=== PATIENT | female | born 1985 | race Caucasian/White ===

== ENCOUNTER → 2019-03-22 14:00 | Outpatient (CLI) | payer BC, SELFPAY ==
[2019-03-22 14:44] LABS: Add Manual Diff / Slide Review NO; Basophils Absolute Auto 0 /uL (0-100); Basophils Percent Auto 0.5 % (0-2); Eosinophils Absolute Auto 200 /uL (0-450); Hematocrit 40.4 % (36-46); Hemoglobin 14.1 g/dL (12.0-16.0); Lymphocytes Absolute Auto 2300 /uL (1100-4500); Lymphocytes Percent Auto 23.4 % (25-40); Mean Corpuscular HGB Conc 34.9 % (30-36); Mean Corpuscular Hemoglobin 32.7 PG (26-34); Mean Corpuscular Volume 93.6 fL (80-100); Monocytes Absolute Auto 400 /uL (0-900); Monocytes Percent Auto 4.5 % (3-14); Neutrophils Absolute Auto 6900 /uL (1500-7000); Neutrophils Percent Auto 69.6 % (50-75); Platelet Count 259 X10^3/uL (150-400); Red Blood Cell Count 4.32 X10^6/uL (4.0-5.2); Red Cell Distribution Width 12.7 % (11.6-14.8); White Blood Cell Count 9.9 X10^3/uL (4.5-11.0)
[2019-03-22 14:49] LABS: Reticulocyte Count, Percent 2.1 % (1.06-2.63)
[2019-03-22 15:00] LABS: HEMOLYSIS < 15 (0-50); Iron 149 ug/dL (37-170)
[2019-03-22 15:04] LABS: Alanine Aminotransferase 14 IU/L (<35); Albumin 4.7 g/dL (3.5-5.0); Albumin Globulin Ratio 1.6 (1.0-2.8); Alkaline Phosphatase 73 U/L (38-126); Aspartate Aminotransferase 30 IU/L (14-36); BUN Creatinine Ratio 16.3 (6-22); Bilirubin Direct 0.2 mg/dL (0.0-0.4); Bilirubin Total 1.8 mg/dL (0.2-1.3); Blood Urea Nitrogen 13 mg/dL (7-17); Calcium 9.4 mg/dL (8.4-10.2); Carbon Dioxide 27 mmol/L (22-32); Chloride 107 mmol/L (98-107); Estimated Glomerular Filt Rate > 60.0 mL/min (>60); Gamma Glutamyl Transpeptidase 17 U/L (12-43); Globulin 2.9 g/dL (1.7-4.1); Glucose 107 mg/dL (70-100); HEMOLYSIS < 15 (0-50); Potassium 4.2 mmol/L (3.4-5.1); Sodium 142 mmol/L (137-145); Total Protein 7.6 g/dL (6.3-8.2)
[2019-03-22 15:07] LABS: Transferrin 256 mg/dL (206-381)
[2019-03-23 14:11] LABS: Percent Iron Saturation 51 % (15-50); Total Iron Binding Capacity 292 ug/dL (265-497)
[2019-03-26 11:29] LABS: Hepatitis A Antibody IgM NONREACTIVE; Hepatitis Acute Panel Interp 0.01; Hepatitis B Core Antibody IgM NONREACTIVE; Hepatitis B Surface Antigen NONREACTIVE
[2019-03-26 14:38] LABS: Hepatitis C Antibody NONREACTIVE
== END ==
PROVIDERS: PCP Student in an Organized Health Care Education/Training Program; Visit Provider Student in an Organized Health Care Education/Training Program
DX: R17 Unspecified jaundice (principal); R79.0 Abnormal level of blood mineral
CPT/HCPCS: 36415; 80053; 80074; 82248; 82977; 83540; 83550; 85025; 85045; 86707; 87522

== ENCOUNTER → 2019-04-02 07:11 | Outpatient (CLI) | payer BC, SELFPAY ==
--- NOTE | 2019-04-02 | DI.US.S_ITS ---
PROCEDURE: US ABDOMEN COMPLETE INDICATIONS: JAUNDICE; ABNORMAL LFTS TECHNIQUE: Real-time scanning was performed of the abdominal and retroperitoneal organs, with image documentation. COMPARISON: None. FINDINGS: Liver: Liver is normal in size and homogeneous in echotexture. Gallbladder: No gallstones identified. Normal gallbladder wall. No pericholecystic fluid. Negative sonographic Gonzalez sign. Biliary ducts: Intrahepatic bile ducts are non-dilated. Extrahepatic bile duct caliber measures 2.9 mm. Normal is 6-7 mm or less in diameter, or 10 mm or less post-cholecystectomy. Pancreas: Visualized portions of the pancreas are sonographically normal. Spleen: Spleen is normal in size and homogeneous in echotexture. Kidneys: Kidneys are normal in size and echotexture. Right kidney measures 10.0 cm long; left kidney measures 10.4 cm long. No hydronephrosis or nephrolithiasis. No solid masses. Aorta: Visualized aorta is normal in caliber at less than 3 cm. Iliacs: Proximal common iliac arteries are normal in caliber at less than 2.5 cm. IVC: Intrahepatic inferior vena cava is patent. Miscellaneous: No free abdominal fluid. IMPRESSION: No source for abnormal LFTs. Dictated by: Kris MIRZA Interpreted: Janell Rodrigues MD on 04/02/2019 at 8:22 Approved by: Janell Rodrigues M.D. on 04/02/2019 at 13:58
== END ==
PROVIDERS: PCP Student in an Organized Health Care Education/Training Program; Visit Provider Student in an Organized Health Care Education/Training Program
DX: R17 Unspecified jaundice (principal); R79.89 Other specified abnormal findings of blood chemistry
CPT/HCPCS: 76700

== ENCOUNTER → 2020-03-27 12:44 | Outpatient (CLI) | payer BC, SELFPAY ==
--- NOTE | 2020-03-27 | DI.US.S_ITS ---
PROCEDURE: US ABDOMEN LIMITED INDICATIONS: Lower abdominal pain, unspecified TECHNIQUE: Real-time focused scanning was performed of the periumbilical region, with image documentation. COMPARISON: None. FINDINGS: There is a 2.5 x 1.4 x 1.4 centimeter hypoechoic mass in the anterior right paraumbilical abdominal wall which corresponds to clinically palpable mass. The lesion has irregular, poorly defined margins. Doppler evaluation of the hypoechoic mass demonstrates internal vascularity. No Marcy umbilical/ventral hernia identified. No defect identified in the ventral abdominal wall. IMPRESSION: 2.5 x 1.4 x 1.4 centimeter hypoechoic mass in the anterior right paraumbilical abdominal wall soft tissues which corresponds to clinically palpable lesion. Mass has imaging characteristics suspicious for neoplastic process. Recommend ultrasound-guided fine-needle aspiration for further characterization. Findings recommendations discussed with ordering physician Dr. Sesay on March 27, 2020 at 4:35 p.m. Dictated by: Linda Feldman MD, PhD on 03/27/2020 at 16:30 Approved by: Linda Feldman MD, PhD on 03/27/2020 at 16:37
== END ==
PROVIDERS: PCP Student in an Organized Health Care Education/Training Program; Referring Provider Student in an Organized Health Care Education/Training Program; Visit Provider Student in an Organized Health Care Education/Training Program
DX: R10.30 Lower abdominal pain, unspecified (principal); R19.07 Generalized intra-abdominal and pelvic swelling, mass and lump
CPT/HCPCS: 76705

== ENCOUNTER → 2020-04-04 12:44 | Outpatient (CLI) | payer BC, SELFPAY ==
--- NOTE | 2020-04-04 | PATH_ITS ---
Note [facility] Accession Number: [id number] TESTS RESULT FLAG UNITS REF RANGE LAB Clinician Provided Cytology Information No. of containers..01 Other (Miscellaneous) No. of containers..00 Previously Prepared Cytology Slide [A] 01 RIGHT ABDOMINAL WALL DIAGNOSIS: [A] 01 RIGHT ABDOMINAL WALL MASS SUSPICIOUS FOR MALIGNANCY; SEE COMMENT. COMMENT: The specimen is moderately cellular and contains cohesive groups of severely atypical epithelioid cells, suspcious for malignancy, with the primary consideration consisting of a non-small cell carcinoma; however, tissue examination with potential immunohistochemical analysis is required for definitive diagnosis. The results of this case are verbally provided by Dr. Bangura to on 04/10/2020 at 3:10 p.m. She reports that the patient presented with a papable abdominal mass, seen on ultrasound as a 2.5 cm periumbilical soft tissue mass. She has no known malignancies. Pathologist ICD10: 01 R19.05 01 MALIGNANCY. RECOMMENDED FNA BIOPSY VERSUS URGENT SURGICAL CONSULT FOR LARGER REMOVAL. 01 Beckie Bangura MD, Pathologist NPI- [id number] 01 Rolando Stafford, Dairy Feed Sales Consultant ([facility]) 01 30 CC, PINK, CLEAR RECIEVED: IN CYTOLYT WITH 5 ALCOHOL FIXED AND 5 QUICK STAINED SLIDES. /[facility] 04/08/2020 0729 Local FLAG LEGEND: L-Low Normal,H-High Normal,LL-Alert Low,HH-Alert High <-Panic Low,>-Panic High,A-Abnormal,AA-Critical Abnormal Performed at: 01 =Z [facility] [address], [place] [address] Raudel De Anda MD, Performed at: 01 [facility] [address] [place] [address] [address], [place], [place] [id number] MD Raudel De Anda MD Phone: [phone]
--- NOTE | 2020-04-04 12:47 | DI.US.S_ITS ---
PROCEDURE: US FINE NEEDLE ASPIRATION INDICATIONS: Intra-abdominal and pelvic swelling, mass and lump TECHNIQUE: The indications, alternatives, benefits, risks, and complications of the procedure were explained to the patient. Written informed consent was obtained and placed in the chart. The area of interest was examined sonographically and a site was chosen for ultrasound guided percutaneous sampling. The skin was prepared and draped in the usual fashion, and anesthetized with 1% lidocaine infiltrated from the skin down to the lesion. Multiple passes were then performed, with contents emptied into an appropriate pathology specimen container. A bandage was applied to the area of access at completion of the study. COMPARISON: None. FINDINGS: Location(s) of lesion(s) sampled: Body wall fat right abdomen, near the midline, near the umbilicus. Palpable abnormality. [place]: 25 gauge hypodermic needles. Number of passes: 6 Medications: 1% lidocaine for local anaesthesia. Complications: None. IMPRESSION: Successful ultrasound-guided mildly lobulated mildly heterogeneous mass measuring approximately 1.5 cm in diameter fine needle aspiration, with cytology results pending. Dictated by: Angel Moralez M.D. on 04/04/2020 at 15:56 Approved by: Angel Moralez M.D. on 04/04/2020 at 15:58
== END ==
PROVIDERS: PCP Student in an Organized Health Care Education/Training Program; Referring Provider Student in an Organized Health Care Education/Training Program; Visit Provider Student in an Organized Health Care Education/Training Program
DX: R19.05 Periumbilic swelling, mass or lump (principal)
CPT/HCPCS: 10005

== ENCOUNTER → 2020-04-15 09:46 | Outpatient (CLI) | payer BC, SELFPAY ==
--- NOTE | 2020-04-15 10:43 | DI.CT.S_ITS ---
PROCEDURE: CT CHEST ABD PEL W CON INDICATIONS: Intra-abdominal and pelvic swelling, mass and lump TECHNIQUE: After the administration of oral and intravenous contrast, 5 mm thick sections acquired from the lung apices to the symphysis. 5 mm coronal and sagittal reformats were performed, with additional 7 mm coronal MIP reformats through the lungs. For radiation dose reduction, the following was used: automated exposure control, adjustment of mA and/or kV according to patient size. COMPARISON: [facility], US, US FINE NEEDLE ASPIRATION, 04/04/2020, 13:20. [facility], US, US ABDOMEN LIMITED, 03/27/2020, 13:29. [facility], US, US ABDOMEN COMPLETE, 04/02/2019, 7:30. FINDINGS: Image quality: Excellent. CHEST: Lungs and pleura: There are several lung nodules. Nodule 1: 2 mm; LAUREN; series 5, image 67. Nodule 2: 3 mm; LAUREN; series 5, image 72. Nodule 3: 2 mm; RLL; series 5, image 241. No acute airspace opacities. No pleural effusions or pneumothorax. Central and peripheral airways appear patent and normal in caliber. Mediastinum: Heart size is normal. No pericardial effusion. No mediastinal or hilar adenopathy by size criteria. Thoracic aorta and central pulmonary arteries are normal in size. Esophagus is normal in caliber. No hiatal hernia. Chest wall: No axillary or supraclavicular adenopathy by size criteria. Thyroid gland is normal. ABDOMEN: Solid organs: Liver is normal in size and enhancement. Gallbladder is normal . Biliary system is non dilated. Pancreas enhances normally. Spleen is normal in size and enhancement. No adrenal nodules. Kidneys demonstrate normal size and enhancement, without hydronephrosis. Peritoneum and bowel: Bowel loops demonstrate normal wall thickness and caliber. No free fluid or air. Nodes and vessels: No retroperitoneal or mesenteric adenopathy by size criteria. Aorta and inferior vena cava are normal in size. Miscellaneous: There is a 1.3 x 1.9 x 1.5 cm heterogeneous mass in the right rectus abdominis muscle. PELVIS: Genitourinary: Bladder wall thickness is normal. Uterus is normal. There is a 1.5 cm thick walled cyst with peripheral enhancement in the left ovary, probably a corpus luteum. Miscellaneous: No inguinal hernias or adenopathy. Bones: No suspicious bony lesions. No vertebral body compression fractures. IMPRESSION: 1. A1.3 x 1.9 x 1.5 cm heterogeneous mass in the right rectus abdominis muscle. Differential diagnosis include benign and malignant neoplasm. 2. A 1.5 cm thick wall cyst in the left ovary with peripheral enhancement, most likely a corpus luteum. Follow-up ultrasound is suggested. 3. Small pulmonary nodules are present. A 3 month follow-up CT is suggested. Dictated by: Wing Pena M.D. on 04/15/2020 at 11:17 Approved by: Wing Pena M.D. on 04/15/2020 at 17:28
== END ==
PROVIDERS: PCP Student in an Organized Health Care Education/Training Program; Referring Provider Student in an Organized Health Care Education/Training Program; Visit Provider Student in an Organized Health Care Education/Training Program
DX: R19.09 Other intra-abdominal and pelvic swelling, mass and lump (principal); R91.8 Other nonspecific abnormal finding of lung field; N83.202 Unspecified ovarian cyst, left side
CPT/HCPCS: 71260; 74177; Q9967

== ENCOUNTER → 2020-04-22 14:26 | Outpatient (CLI) | payer BC, SELFPAY ==
[2020-04-22 09:41] LABS: Add Manual Diff / Slide Review NO; Basophils Absolute Auto 100 /uL (0-100); Basophils Percent Auto 0.7 % (0-2); Eosinophils Absolute Auto 300 /uL (0-450); Eosinophils Percent Auto 4.4 % (2-4); Hematocrit 41.5 % (36-46); Hemoglobin 14.1 g/dL (12.0-16.0); Lymphocytes Absolute Auto 2000 /uL (1100-4500); Lymphocytes Percent Auto 29.9 % (25-40); Mean Corpuscular HGB Conc 34.1 % (30-36); Mean Corpuscular Hemoglobin 31.6 PG (26-34); Mean Corpuscular Volume 92.7 fL (80-100); Monocytes Absolute Auto 500 /uL (0-900); Neutrophils Absolute Auto 3900 /uL (1500-7000); Platelet Count 235 X10^3/uL (150-400); Red Blood Cell Count 4.48 X10^6/uL (4.0-5.2); Red Cell Distribution Width 12.8 % (11.6-14.8); White Blood Cell Count 6.8 X10^3/uL (4.5-11.0)
[2020-04-22 09:45] LABS: INR 1.3 (0.9-1.3); Prothrombin Time 14.4 SECONDS (10.1-12.7)
== END ==
PROVIDERS: PCP Student in an Organized Health Care Education/Training Program; Referring Provider Student in an Organized Health Care Education/Training Program; Visit Provider Student in an Organized Health Care Education/Training Program
DX: R19.00 Intra-abdominal and pelvic swelling, mass and lump, unspecified site (principal)
CPT/HCPCS: 36415; 85025; 85610

== ENCOUNTER 2020-04-25 09:23 | Outpatient (CLI) | payer BC, SELFPAY ==
--- NOTE | 2020-04-25 | DI.US.S_ITS ---
PROCEDURE: US BIOPSY ABD OR RETROPERIT Ultrasound-guided percutaneous biopsy with sedation analgesia for 0 minutes. INDICATIONS: RIGHT PARAUMBILICAL MASS BIOPSY TECHNIQUE: The indications, alternatives, benefits, risks, and complications of the procedure were explained to the patient. Written informed consent was obtained and placed in the chart. Continuous EKG and hemodynamic monitoring was started by trained personnel. Real-time sonography was utilized to choose the site for percutaneous biopsy. The skin was prepped and draped in the usual sterile fashion. 1% lidocaine was infiltrated down to the site of interest. A coaxial needle was then advanced into the site of interest under direct sonographic visualization. A biopsy apparatus was then utilized, and core biopsies were obtained. The needle was then withdrawn; a bandage was applied to the biopsy site. COMPARISON: [facility], US, US FINE NEEDLE ASPIRATION, 04/04/2020, 13:20. [facility], US, US ABDOMEN LIMITED, 03/27/2020, 13:29. [facility], US, US ABDOMEN COMPLETE, 04/02/2019, 7:30. [facility], CT, CT CHEST ABD PEL W CON, 04/15/2020, 10:33. FINDINGS: Biopsy site(s): Right anterior abdominal wall mass Needle: Temno and mission biopsy needle sets. Number of passes: 8 Medications: 1% lidocaine for local anaesthesia. Complications: None. IMPRESSION: Successful ultrasound-guided abnormal wall mass biopsy, with pathology results pending. Dictated by: Wing ePna M.D. on 04/25/2020 at 12:43 Approved by: Wing Pena M.D. on 04/25/2020 at 12:50
--- NOTE | 2020-04-25 | PATH_ITS ---
[facility] Accession Number: [id number] . 01 Material submitted: . abdomen - RIGHT PARAUMBILICAL ABDOMINAL MASS . 01 Clinical history: . IHC STAIN RULE OUT IMMUNOHISTOCHEMICAL ANALYSIS . 01 Diagnosis: Right Paraumbilical Abdominal Mass, Biopsy: Minute fragments of fibroadipose tissue with a rare endometrioid-like gland, see Microscopic Description. Overall the specimen is suboptimal for accurate characterization. V 04/30/2020 1232 Local . 01 Electronically signed: . Bentley Aleman MD, Pathologist NPI- [id number] . 01 Gross description: . Received in formalin, labeled with the patient's name and right para-umbilical abdominal mass, are five pale jean cores of soft tissue, 0.4-0.6 cm length, 0.1 cm diameter, submitted intact and entirely. . SUMMARY OF SECTIONS: A1. Five pieces. (CO:[id number]) /[facility] 04/30/2020 1232 Local . 01 Microscopic: . Microscopic examination reveals predominantly fibrous and adipose tissue with a rare endometrioid-appearing gland and scant associated stroma. There is minimal cytologic atypia, and no diagnostic features for malignancy are seen in this extremely limited specimen submitted for examination. In an attempt to further characterize this rare endometrioid-like gland, a limited panel of immunostains is performed with the following results: . PAX-8: Negative; however, the area of interest is not present; no gland is seen. ER: Rare focal positivity, probably of stromal origin; no gland is seen. CD10: Focal stromal positivity. No definite endometrial-type stroma staining. WT-1: Negative; however, the area of interest is not present for evaluation; no gland is seen. . Overall, although this rare endometrioid-appearing gland may represent endometrioma, given the scant lesional tissue, a definitive diagnosis cannot be rendered. . Excisional biopsy is recommended for accurate characterization of the mass. . Preliminary results were called to Dr. Elda Vazquez on 04/29/2020 at 4:15 p.m, by Dr. Beckie Bangura. . * This test was developed and its performance characteristics determined by [facility]. It has not been cleared or approved by the U.S. Food and Drug Administration. The FDA has determined that such clearance or approval is not necessary. This test is used for clinical purposes. It should not be regarded as investigational or for research. . 01 Pathologist provided ICD-10: R19.00 . 01 CPT . 933971, I05780, K67432 Specimen Comment: [id number] [facility]formed at: [facility] [address] [place] [address], [place], [place] [id number] MD Raudel De Anda MD Phone: [phone]
[2020-04-25 09:52] VITALS: BP 122/80; PULSE 81; RESP 16; TEMP 37.1; O2SAT 100; BMI 21.5
[2020-04-25 12:12] VITALS: BP 119/81; PULSE 65; RESP 16; TEMP 37.3; O2SAT 98
--- NOTE | 2020-04-25 12:13 | SUR.PHASEII ---
Patient arrives from Diagnostic imaging in stable condition. VSS. GCS 15. Bandaid noted to lower abdomen, clean dry and intact. Patient rates pain 2/10, denies SOB, denies nausea.
== END 2020-04-25 12:29 | disposition home or self-care (01) ==
PROVIDERS: PCP Student in an Organized Health Care Education/Training Program; Referring Provider Student in an Organized Health Care Education/Training Program; Visit Provider Student in an Organized Health Care Education/Training Program
DX: R19.00 Intra-abdominal and pelvic swelling, mass and lump, unspecified site (principal)
CPT/HCPCS: 49180; 76942

== ENCOUNTER → 2020-05-13 15:05 | Outpatient (CLI) | payer BC, SELFPAY ==
[2020-05-13 16:11] LABS: COVID19 -Nasal RAPID Negative (Negative)
== END ==
PROVIDERS: PCP Student in an Organized Health Care Education/Training Program; Visit Provider Surgery
DX: Z01.812 Encounter for preprocedural laboratory examination (principal); Z20.822 Contact with and (suspected) exposure to COVID-19
CPT/HCPCS: 87635; C9803

== ENCOUNTER 2020-05-14 12:32 | Day surgery (SDC) | payer BC, SELFPAY ==
[2020-05-08 14:28] VITALS: BMI 21.4
[2020-05-14] VITALS (9 sets, daily range): BP systolic 98–124; BP diastolic 62–82; PULSE 60–88; RESP 12–18; TEMP 36.7–37.3; O2SAT 98–100; BMI 21.4
--- NOTE | 2020-05-14 | PATH_ITS ---
[facility] Accession Number: [id number] . 01 Material submitted: . abdomen - ABDOMINAL WALL MASS . 01 Diagnosis: Abdominal Wall, Excision: Endometriosis; see comment. MRV 05/19/2020 1434 Local . 01 Comment: Sections show endometrial glands in association with stroma with surrounding fibrosis and hemosiderin deposition. The findings are consistent with endometriosis. There is no definite evidence of malignancy identified in sections examined. . This case has been reviewed by Dr. Beckie Bangura. . 01 Electronically signed: . Mejia Yancey MD, Dermatopathologist NPI- [id number] . 01 Gross description: . The specimen is received in formalin, labeled abdominal wall mass and consists of a 4.0 x 3.5 x 2.0 cm previously incised jean-pink fragment of soft tissue with adipose tissue. There is a 2.2 x 2.0 x 2.0 cm firm jean-pink nodule which is inked blue and sectioned to reveal firm jean-white cut surfaces. Blanket Winder Helper sections are submitted in cassettes A1-A3. (EA:[id number]) /[facility] 05/16/2020 1245 Local . 01 Pathologist provided ICD-10: N80.9 . 01 CPT . 157967 Performed at: [address], [place], [place] [id number] MD Raudel De Anda MD Phone: [phone]
--- NOTE | 2020-05-14 13:12 | PM.PREOP ---
Pre-operative Note COVID-19 COVID-19 status: Negative Result date/Date tested (Pos, Neg/Pending): 05/13/20 Interval Note History & Physical reviewed/Exam performed by Physician: Yes Changes to H&P: No
[2020-05-14] MEDS: LACTATED RINGERS 1,000 ML 100 ML IV (13:16)
[2020-05-14] MEDS: CEFAZOLIN 2 GM/100 ML FROZ.PIGGY IV (13:22)
--- NOTE | 2020-05-14 13:41 | SUR.OPER ---
Supine on padded OR bed, head on pillow, arms secured on padded arm boards at <90 degrees abduction, legs uncrossed, safety belt at thigh, tape over blanket over lower legs.
[2020-05-14] MEDS: BUPIVACAINE 0.25% W/ EPI (PF) 10 ML VIAL 20 ML INJ (13:47)
[2020-05-14] MEDS: BUPIVACAINE LIPOSOME 266 MG/20 ML VIAL INJ (14:11)
--- NOTE | 2020-05-14 14:56 | PM.OP.1 ---
Operative Date/Time/Diagnoses Date of procedure: 05/14/20 Time of procedure: 14:56 Pre-op diagnosis: Abdominal wall mass, suspect endometrioma Post-op diagnosis: same Procedure & Clinicians Procedure: Excision of abdominal wall mass, subfascial Reconstruction of abdominal wall Same procedure as scheduled: Yes Indications: Painful abdominal wall mass, endometrioma suspicious for malignancy Surgeon: Pearl Sanchez Anesthesia Type: General Operative Notes Findings: Firm nodular mass imbedded through the fascia and within the right rectus muscle Specimen(s): other (Abdominal wall mass) Estimated Blood Loss (mL): 10 Procedure in detail: The patient was brought to the operating room, placed supine on the operating table, and sequential compression devices were placed on both legs and turned on. Appropriate perioperative antibiotics were given. General anesthesia was induced by the anesthesiologist and the patient was intubated with an LMA. The abdomen was then prepped and draped in sterile fashion, and a surgical time-out was conducted. At this point local anesthetic was injected using 0.25% Marcaine with epi, at the site of the planned incision. An 8cm vertical incision was then made in the skin of the lower abdominal midline overlying the palpable mass. Dissection was then carried down through the dermis and subcutaneous tissue, and dissection was carried around the palpable mass leaving a 5mm margin of subcutaneous fat tissue cirumferentially. I dissected circumferentially around the mass until I reached the fascia of the right rectus muscle. I had to incise the fascia as the mass was invading the fascia and adherent to muscle tissue beneath. I dissected the mass off of the muscle, with a small amount of muscle tissue being resected along with the mass. Once the entire specimen was free, I passed it off of the field. I bivalved it, and could see the entire masslike structure was containted within the specimen and was surrounded by a fat and muscle tissue gross margin. I then changed gloves and instruments and irrigated the wound. I then undermined the subcutaneous fat to increase laxity of the abdominal fascia. There was a 3cm x 4cm defect in the fascia which had to be closed because it was at the midline. The muscle and peritoneum were still basically intact and we did not enter the abdominal cavity. I had to make a relaxing incision over the right anterior rectus sheath in order to close the fascia at midline. A 6cm vertical incision was made in the rectus sheath overlying the right rectus muscle. The anterior fascia was then brought to midline and was closed with running 0 vicryl suture. The wound was then irrigated. Local anesthetic was infiltrated into the wound circumferentially using a total of 40mL of 0.25% Marcaine for the entire procedure. I then injected Exparel 20mL in small aliquots. I then closed the subcutaneous fat bringing it together with 3-0 Vicryl suture, and closed the skin with subcuticular Monocryl 4-0. The skin edges were then sealed with Dermabond. This concluded the procedure. A stack of 4x4's were placed on top of the skin glue, and an abdominal binder was placed snuggly on the patient. The patient was awakened from anesthesia and extubated. [facility]. The patient was then transferred to the postanesthesia care unit in stable condition. She tolerated the procedure well. Needle sponge and instrument counts were correct x2 at the end of the case. Complications: none Post-operative Condition: stable Disposition: PACU
== END 2020-05-14 15:33 | disposition home or self-care (01) ==
PROVIDERS: PCP Student in an Organized Health Care Education/Training Program; Referring Provider Surgery; Visit Provider Surgery
PROC: (CPT 22901; principal; 2020-05-14 13:45)
DX: N80.8 Other endometriosis (principal); E80.4 Gilbert syndrome; E83.119 Hemochromatosis, unspecified
CPT/HCPCS: 22901; 81025; 82962; C9290; J0690; J1100; J1885; J2250; J2405; J2704; J3010